=== PATIENT | female | born 1995 | race Caucasian/White ===

== ENCOUNTER 2016-10-18 06:02 | Inpatient (IN) | payer OTHER ==
[2016-10-18] MEDS ORDERED: METHYLERGONOVINE 0.2 MG/ML 1 ML AMP IM PRN (06:46)
[2016-10-18] MEDS ORDERED: LIDOCAINE 1% (PF) 10 MG/ML (30 ML SDV) SQ PRN (06:46)
[2016-10-18] MEDS ORDERED: TERBUTALINE 1 MG/ML VIAL SQ PRN (06:46)
[2016-10-18] MEDS ORDERED: CARBOPROST TROMETHAMINE 250 MCG/ML 1 ML AMP IM PRN (06:46)
[2016-10-18] MEDS ORDERED: OXYTOCIN 10 UNIT/ML 1 ML VIAL IM PRN (06:46)
[2016-10-18] MEDS: LACTATED RINGERS 1,000 ML IV SCH ×2 (06:57→16:19)
[2016-10-18] MEDS ORDERED: OXYTOCIN 20 UNITS/1000 ML NS 1,000 ML IV SCH (07:00)
[2016-10-18 07:04] LABS: Basophils % (A) 0 %; CH 29.6; CHCM 32.5; Eosinophils # (A) 0.2 k/uL (0-0.7); Eosinophils % (A) 2 %; HCT 36.6 % (34.0-46.0); HDW 2.72; HGB 11.9 gm/dL (11.4-16.0); Luc # (Auto) 0.22; Luc % (Auto) 2; Lymphocytes # (A) 2.2 k/uL (1.0-4.8); Lymphocytes % (A) 21 %; MCH 29.8 pg (25.0-35.0); MCHC 32.5 g/dL (31.0-37.0); MCV 91.7 fL (80.0-100.0); Mean Platelet Volume 7.6; Monocytes # (A) 0.6 k/uL (0-1.0); Monocytes % (A) 6 %; Neutrophils # (A) 7.3 k/uL (1.3-7.7); Neutrophils % (A) 69 %; RBC 3.99 m/uL (3.80-5.40); RDW 14.7 % (11.5-15.5); WBC 10.5 k/uL (3.8-10.6); WBC (Perox) 10.73
--- NOTE | 2016-10-18 07:17 | P.HPOB ---
History of Present Illness H&P Date: 10/18/16 This is a 18-year-old white female 3 para 2004 EDC 10/25/2016 at 39 weeks gestation. Patient presents today for induction for increasing maternal discomfort, favorable multiparous cervix. Fetus is been active throughout the . She is having mild irregular contractions spontaneously. Social history patient is a bank cashier for [employer], she denies alcohol or drug use, she is . No history of tobacco use. Family history is significant for autism, depression, ovarian cancer. Current medications vitamins daily. ALLERGIES include ALLERGIC reaction to latex and bee stings. Past surgical history colposcopy, wisdom teeth extracted. Past medical history significant for ovarian cysts and abnormal Pap smear. history blood type is O+, rubella status immune. Group B strep cultures negative. Hepatitis B surface antigen, urine culture, HIV testing, gonorrhea and chlamydia cultures, Pap smear all negative. One-hour Glucola 104. On exam this is a pleasant young female, she is 5 foot 2 inches, 164 pounds, vital signs are stable and she is afebrile. The general physical exam is within normal limits. The chest is clear in all dietrich. The extremities reveal no edema. The cervix is 3-4 cm dilated, -2 station, vertex presentation , 60-70%, anterior. Artificial amniorrhexis reveals clear fluid. heart tones are in the 140s with frequent accelerations, consistent with reactive NST. Tractions appear to be approximately every 4-5 minutes apart spontaneously , mild in nature. Impression: 39 week intrauterine , here for elective induction, all signs reassuring. Plan: Oxytocin per hospital protocol. Close maternal and surveillance. Anticipating normal spontaneous vaginal delivery. Past Medical History Past Medical History: No Reported History History of Any Multi-Drug Resistant Organisms: None Reported Additional Past Surgical History / Comment(s): wisdom teeth-14 yr/old Past Anesthesia/Blood Transfusion Reactions: No Reported Reaction Past Psychological History: No Psychological Hx Reported Smoking Status: Never smoker Past Alcohol Use History: None Reported Past Drug Use History: None Reported - Past Family History Mother Family Medical History: Osteoarthritis (OA) Medications and Allergies Home Medications Medication Instructions Recorded Confirmed Type Pnv #78/Iron Asp Gly/FA#1/Dha 1 each PO DAILY 05/31/15 10/18/16 History [Prenate Dha Softgel] Allergies Allergy/AdvReac Type Severity Reaction Status Date / Time Latex, Natural Rubber Allergy Mild Rash/Hives Verified 10/18/16 06:46 Exam - Vital Signs Vital signs: Intake and Output 10/17/16 10/18/16 10/18/16 22:59 06:59 14:59 Other: Weight 74.389 kg Results Result Diagrams: 10/18/16 06:15
[2016-10-18 07:43] VITALS: BMI 29.9
[2016-10-18] MEDS ORDERED: BUTORPHANOL 1 MG/ML 1 ML VIAL IV PRN (11:55)
[2016-10-18] MEDS ORDERED: LANOLIN CREAM 5 GM TUBE TOPICAL PRN (13:55)
[2016-10-18] MEDS ORDERED: SIMETHICONE 80 MG CHEWABLE PO PRN (13:55)
[2016-10-18] MEDS ORDERED: diphenhydrAMINE 50 MG CAP PO PRN (13:55)
[2016-10-18] MEDS ORDERED: WITCH HAZEL 1 EACH MED..PAD TOPICAL PRN (13:55)
[2016-10-18] MEDS ORDERED: IBUPROFEN 600 MG TAB PO PRN (13:55)
[2016-10-18] MEDS ORDERED: Acetaminophen-Codeine 300-30mg TAB PO PRN (13:55)
[2016-10-18] MEDS ORDERED: diphenhydrAMINE ELIXIR 25 MG/10 ML CUP PO PRN (13:55)
[2016-10-18] MEDS ORDERED: BENZOCAINE/MENTHOL SPRAY 1 GM/SPRAY AEROSOL TOPICAL PRN (13:55)
[2016-10-18] MEDS ORDERED: ZOLPIDEM 5 MG TAB PO PRN (13:55)
[2016-10-18] MEDS ORDERED: ACETAMINOPHEN TAB 325 MG TAB PO PRN (13:55)
[2016-10-18] MEDS ORDERED: HYDROCORTISONE 2.5% RECTAL CREAM 30 GM TUBE RECTAL PRN (13:55)
[2016-10-18] MEDS ORDERED: diphenhydrAMINE 50 MG/ML 1 ML VIAL IVP PRN ×2 (13:55)
[2016-10-18] MEDS ORDERED: diphenhydrAMINE 25 MG CAP PO PRN (13:55)
--- NOTE | 2016-10-18 13:55 | P.PROBDLV ---
Vaginal Delivery Note - . Vaginal Delivery Note: This is a 21-year-old white female 3 para 2004 EDC 10/25/2016 at 39 weeks gestation. Patient presented today for induction with favorable multiparous cervix, at term. has been unremarkable, group B strep cultures negative, blood type O+, rubella status immune. Please see my dictated history and physical for details. Artificial amniorrhexis revealed clear fluid. Oxytocin was started and titrated per hospital protocol. Patient was counseled regarding, but declined the option for epidural. She progressed well through the first stage of labor and was judged to be completely dilated at 1339 hrs. Perineal body was prepped and draped then in the usual sterile fashion. With excellent maternal expulsive efforts the infant's head delivered occiput anterior and he restituted accordingly. There was no nuchal cord noted. The left or anterior shoulder was gently and easily delivered from underneath the pubic symphysis at which time the oropharynx, nasopharynx, and external nares were all bulb suctioned on the perineal body. Patient was officially delivered of a liveborn male at 1341 hrs. Umbilical cord was doubly clamped and ligated, he was handed to waiting nurses for evaluation where scores of 8 and 9 at one and 5 minutes respectively were given. Infant weighed 7 lbs. 12 oz. or 3515 g. The uterus was massaged, noted to be firm and in the midline, symmetric and 18 week size. The perineal body was then redraped. Inspection of the cervix, vagina, perineum , periurethral and perirectal areas revealed no lacerations and no defects. Estimated blood loss 200 mL's. All sponge needle and enhancement counts are correct at the end of the procedure. Patient is requesting circumcision for her son.
[2016-10-18] MEDS: SENNOSIDES-DOCUSATE SODIUM 1 EACH TAB PO SCH (20:45)
--- NOTE | 2016-10-19 08:19 | P.DS ---
Providers Date of admission: 10/18/16 06:02 Expected date of discharge: 10/19/16 Attending physician: Paty Haque Primary care physician: Stated None Hospital Course: This is a 21-year-old white female 3 para 2002 EDC 10/25/2016 at 39 weeks gestation. Patient presented for induction with favorable multiparous cervix, increasing maternal discomfort. was essentially unremarkable , rubella immune, group B strep cultures negative, blood type O+. Please see my dictated history and physical for details. Patient was admitted, artificial amniorrhexis revealed clear fluid. Oxytocin was started and titrated per hospital protocol. She progressed well through labor and went on to deliver a liveborn male with scores of 8 and 9 at one and 5 minutes respectively. Infant weighed 7 lbs. 12 oz. or 3515 g. There was an estimated blood loss of 200 mL, no perineal lacerations, please see my dictated delivery note for details. This morning the patient is doing well. She is voiding, ambulating and passing flatus without difficulty. Vital signs are stable and she is afebrile. Fundus is firm and in the midline, symmetric and 18 week size. Breasts are not engorged. is doing well, circumcision has been performed. Patient is therefore being discharged home today in very good condition. She will follow-up in the office with me in 6 weeks. I have reminded her no intercourse, tampons or douching. She is electing to use [id number] products as needed for pain, ibuprofen, 200 mg pills, 3 every 6 hours as needed. She will continue taking her vitamin daily. I have asked her to call with any fevers shakes or chills, foul smelling or copious lochia, with the passage of large blood clots, with any pain not alleviated by over-the- counter products, or indeed with any concerns. Patient Condition at Discharge: Good Plan - Discharge Summary Discharge Medication List Pnv #78/Iron Asp Gly/FA#1/Dha [Prenate Dha Softgel] 1 cap PO DAILY 05/31/15 [ History] Follow up Appointment(s)/Referral(s): Paty Haque MD [STAFF PHYSICIAN] - 6 Weeks Discharge Disposition: HOME SELF-CARE
[2016-10-19] MEDS: SENNOSIDES-DOCUSATE SODIUM 1 EACH TAB PO SCH (11:39)
[2016-10-19 17:41] VITALS: BP 112/69; PULSE 72; RESP 18; TEMP 98.8
== END 2016-10-19 16:00 | disposition home or self-care (01) | DRG 775 ==
LOC: 4FBP 06:02
PROVIDERS: ADMIT Obstetrics & Gynecology; ATTEND Obstetrics & Gynecology
PROC: 3E033VJ Introduction of Other Hormone into Peripheral Vein, Percutaneous Approach (ICD-10-PCS; principal; 2016-10-18)
PROC: 10E0XZZ Delivery of Products of Conception, External Approach (ICD-10-PCS; principal; 2016-10-18)
PROC: 10907ZC Drainage of Amniotic Fluid, Therapeutic from Products of Conception, Via Natural or Artificial Opening (ICD-10-PCS; principal; 2016-10-18)
DX: O80 Encounter for full-term uncomplicated delivery (principal); Z91.040 Latex allergy status; Z37.0 Single live birth; Z3A.39 39 weeks gestation of pregnancy
CPT/HCPCS: 85025; 88307